=== PATIENT | male | born 1980 | race Caucasian/White ===

== ENCOUNTER 2020-03-08 14:04 | Emergency (ER) | payer MEDICAID ==
[~2020-03-08] VITALS: Ht 170.2 cm; Wt 90.9 kg
[2020-03-08] MEDS ORDERED: ROSU10TA22 PO (14:10)
[2020-03-08] MEDS ORDERED: METO-558 PO (14:10)
[2020-03-08 15:18] LABS: COVID AG,FIA SOURCE NASOPHARYNGEAL
[2020-03-08 17:37] VITALS: BP 115/71
== END 2020-03-08 18:03 | disposition home or self-care (01) ==
LOC: EMS 14:04
DX: J18.9 Pneumonia, unspecified organism (principal); Z20.828 Contact with and (suspected) exposure to other viral communicable diseases; I10 Essential (primary) hypertension; E78.00 Pure hypercholesterolemia, unspecified; Z88.1 Allergy status to other antibiotic agents; Z79.899 Other long term (current) drug therapy
CPT/HCPCS: 87426; 71045-TC